=== PATIENT | female | born 1995 | race Caucasian/White ===

== ENCOUNTER 2023-12-09 16:36 | Outpatient (CLI) | payer OTHER | END 2023-12-09 23:59 | disposition home or self-care (01) | LOC: RAD 16:36 | PROVIDERS: ATTEND Family Medicine | DX: E04.1 Nontoxic single thyroid nodule (principal) | CPT/HCPCS: 76536 ==

== ENCOUNTER 2024-03-31 09:33 | Outpatient (CLI) | payer OTHER | END 2024-03-31 23:59 | disposition home or self-care (01) | LOC: RAD 09:33 | PROVIDERS: ATTEND Family Medicine | DX: E04.1 Nontoxic single thyroid nodule (principal) | CPT/HCPCS: 76536 ==